=== PATIENT | female | born 1980 | race Two or more races ===

== ENCOUNTER 2025-01-28 16:45 | Emergency (ER) | payer MEDICAID ==
[~2025-01-28] VITALS: Ht 167.6 cm; Wt 88.0 kg
[2025-01-28 17:02] VITALS: BP 137/86; TEMP 98.1; O2SAT 99
[2025-01-28] MEDS ORDERED: LIDOCAINE 1% INJ 50 ML MDV IJ ONE (17:23)
== END 2025-01-28 18:04 | disposition home or self-care (01) ==
LOC: ER 16:52
DX: S90.211A Contusion of right great toe with damage to nail, initial encounter (principal); X58.XXXA Exposure to other specified factors, initial encounter; Y93.89 Activity, other specified; Y92.89 Other specified places as the place of occurrence of the external cause; Y99.8 Other external cause status
CPT/HCPCS: 99284; 11730; J3490